=== PATIENT | female | born 1955 | race Caucasian/White ===

== ENCOUNTER 2025-03-21 15:43 | Inpatient (IN) | payer MEDICARE, MEDICAID ==
[~2025-03-21] VITALS: Ht 157.5 cm; Wt 55.4 kg
[2025-03-21 16:10] LABS: PLATELET COUNT (AUTO) 209 K/uL (150-450); RED BLOOD CELL COUNT(AUTO) 4.62 MIL/uL (4.00-5.20); RED CELL DISTRIBUTION WIDTH 13.5 % (11.5-14.5); WHITE BLOOD COUNT (AUTO) 8.8 K/uL (4.5-11.0)
[2025-03-21 16:18] LABS: CALCIUM, TOTAL 8.8 mg/dL (8.8-10.5); CREATININE 0.79 mg/dL (0.60-1.30); GLOMERULAR FILTR. RATE CALC > 60 mL/min (>60); GLUCOSE,RANDOM 98 mg/dL (70-110); SODIUM SERUM 146 mmol/L (136-145); UREA NITROGEN, BLOOD 17 mg/dL (7-18)
[2025-03-21 16:27] LABS: TROPONIN I-HIGH SENSITIVITY 9 ng/L (<51)
[2025-03-21 18:23] LABS: COVID AG,FIA SOURCE NASAL SWAB
[2025-03-21 18:53] LABS: SARS-COV2 (COVID) ANTIGEN,FIA Negative (Negative)
[2025-03-22 05:52] LABS: CHOL/HDL RATIO 2.8 (3.9-5.7); LDL CHOL (CALC.) 81 mg/dL (0-130)
[2025-03-22 06:13] LABS: VALPROIC ACID < 3 mcg/mL (50-100)
[2025-03-22 23:44] LABS: APPEARANCE,URINE HAZY (CLEAR); GLUCOSE, URINE (UA) NEGATIVE (NEGATIVE); LEUKOCYTE ESTERASE ,URINE NEGATIVE (NEGATIVE); NITRATE,URINE NEGATIVE (NEGATIVE); OCCULT BLOOD,URINE NEGATIVE (NEGATIVE); PH,URINE DRUG SCREEN 6.0 (5.0-8.0); SPECIFIC GRAVITIY, URINE 1.026 (1.003-1.030)
[2025-03-22 23:50] LABS: ALCOHOL, URINE DRUG SCREEN NEGATIVE (NEGATIVE); AMPHET/METH SCREEN,URINE NEGATIVE (NEGATIVE); BARBITURATE SCREEN, URINE NEGATIVE (NEGATIVE); CANNABINOID SCREEN,URINE NEGATIVE (NEGATIVE); COCAINE SCREEN,URINE NEGATIVE (NEGATIVE); METHADONE SCREEN, URINE NEGATIVE (NEGATIVE)
[2025-03-22 23:52] LABS: SQUAMOUS EPITHELIAL CELL,UR Rare /LPF (None Seen)
[2025-03-24 00:40] VITALS: BP 120/69; PULSE 58; RESP 16; TEMP 97.3; O2SAT 97
[2025-03-24] MEDS: CHOLECALCIFEROL (VIT D3) 5,000 [125 MCG] UNITS CAPSULE PO SCH (08:29)
[2025-03-24 12:40] VITALS: BP 135/70; PULSE 63; RESP 18; TEMP 97.8; O2SAT 95
[2025-03-24] MEDS: DONEPEZIL HCL 10 MG TABLET PO SCH (12:45)
[2025-03-24] MEDS: DIVALPROEX SODIUM 125 MG DR TABLET PO SCH (17:00)
[2025-03-24 20:12] VITALS: BP 127/77; PULSE 72; RESP 18; TEMP 97.4; O2SAT 98
[2025-03-24] MEDS: ATORVASTATIN CALCIUM 10 MG TABLET PO SCH (20:32)
[2025-03-24] MEDS: LORazepam 2 MG/ML VIAL IM ONE (21:54)
[2025-03-25 06:52] VITALS: BP 108/60; PULSE 56; RESP 18; TEMP 97.9; O2SAT 98
[2025-03-25 07:31] LABS: CHOL/HDL RATIO 3.2 (3.9-5.7); LDL CHOL (CALC.) 108.0 mg/dL (0-130)
[2025-03-25] MEDS: ESCITALOPRAM OXALATE 10 MG TABLET PO SCH (09:37)
[2025-03-25 21:21] VITALS: BP 113/64; PULSE 64; RESP 18; TEMP 98.3; O2SAT 97
[2025-03-26 09:40] VITALS: BP 147/76; PULSE 97; RESP 18; TEMP 98; O2SAT 97
[2025-03-26 20:00] VITALS: BP 110/90; PULSE 73; RESP 18; TEMP 98.1; O2SAT 98
[2025-03-27 08:00] VITALS: RESP 18
[2025-03-27] MEDS: LORazepam 2 MG/ML VIAL IM ONE (15:55)
[2025-03-27 20:11] VITALS: RESP 18
[2025-03-28 13:48] VITALS: RESP 18
[2025-03-28 20:06] VITALS: PULSE 77; RESP 18; O2SAT 100
[2025-03-29 08:25] VITALS: TEMP 98.6
[2025-03-29] MEDS ORDERED: LORazepam 2 MG/ML VIAL ONE (11:20)
[2025-03-29] MEDS: LORazepam 2 MG/ML VIAL IM ONE (11:29)
[2025-03-29 21:36] VITALS: RESP 17; TEMP 97.9
[2025-03-30 08:00] VITALS: BP 128/71; PULSE 73; RESP 17; TEMP 97.3
[2025-03-30 22:17] VITALS: RESP 18
[2025-03-31 10:45] VITALS: BP 115/71; PULSE 70; RESP 18; TEMP 98
[2025-03-31 21:40] VITALS: RESP 18
[2025-04-01] MEDS: ZOLPIDEM TARTRATE 5 MG TABLET PO PRN (01:49)
[2025-04-01 12:14] VITALS: BP 126/75; PULSE 75; RESP 19; TEMP 98.2; O2SAT 98
[2025-04-01 20:00] VITALS: BP 115/70; PULSE 80; RESP 18; TEMP 98; O2SAT 99
[2025-04-02 09:39] VITALS: BP 103/69; PULSE 78; RESP 17; TEMP 97.6; O2SAT 96
[2025-04-02 21:28] VITALS: BP 122/72; PULSE 62; RESP 18; TEMP 98.5; O2SAT 96
[2025-04-03 11:34] VITALS: TEMP 97.8
[2025-04-03 12:11] VITALS: RESP 20
[2025-04-03 21:50] VITALS: BP 118/68; PULSE 71; RESP 18; TEMP 97.3
[2025-04-04 08:56] VITALS: BP 118/78; PULSE 80; RESP 18; TEMP 97.8
[2025-04-04 21:24] VITALS: BP 112/70; PULSE 74; RESP 17; TEMP 97.3; O2SAT 97
[2025-04-05 09:24] VITALS: BP 102/67; PULSE 89; RESP 18; TEMP 97.9; O2SAT 98
[2025-04-05 21:38] VITALS: BP 93/61; PULSE 64; RESP 18; TEMP 97.8; O2SAT 95
[2025-04-06 08:01] VITALS: BP 127/90; PULSE 99; RESP 18; TEMP 97.7; O2SAT 98
[2025-04-06 21:23] VITALS: BP 135/86; PULSE 94; RESP 17; TEMP 97.5; O2SAT 99
[2025-04-07 08:09] VITALS: RESP 18
[2025-04-07 20:00] VITALS: BP 103/70; PULSE 70; RESP 18; TEMP 97.7; O2SAT 99
[2025-04-08 08:52] LABS: ASPARTATE AMINOTRANSFERASE 17 U/L (15-37); CALCIUM, TOTAL 8.8 mg/dL (8.8-10.5); CREATININE 0.77 mg/dL (0.60-1.30); GLOMERULAR FILTR. RATE CALC > 60 mL/min (>60); GLUCOSE,RANDOM 91 mg/dL (70-110); PHOSPHORUS 2.6 mg/dL (2.5-4.9); SODIUM SERUM 140 mmol/L (136-145); TOTAL PROTEIN, SERUM 6.8 g/dL (6.4-8.2); UREA NITROGEN, BLOOD 11 mg/dL (7-18)
[2025-04-08 11:08] VITALS: BP 129/62; PULSE 87; RESP 17; TEMP 99.3; O2SAT 96
[2025-04-08] MEDS ORDERED: DIVA125T32 PO (12:45)
[2025-04-08] MEDS ORDERED: ESCI-8 PO (12:45)
[2025-04-08] MEDS ORDERED: QUET25TA PO (12:46)
[2025-04-08] MEDS ORDERED: ATOR10TA PO (12:47)
[2025-04-08] MEDS ORDERED: CHOL500013 PO (12:49)
[2025-04-08] MEDS ORDERED: DONE-51 PO (12:49)
== END 2025-04-08 15:13 | disposition home or self-care (01) | DRG 885 ==
LOC: EMS 15:43 → 3EI 03-23 22:35
PROVIDERS: ADMIT Psychiatry & Neurology Child & Adolescent Psychiatry; ATTEND Psychiatry & Neurology Child & Adolescent Psychiatry
PROC: GZ56ZZZ Individual Psychotherapy, Supportive (ICD-10-PCS; principal; 2025-03-24)
PROC: GZ58ZZZ Individual Psychotherapy, Cognitive-Behavioral (ICD-10-PCS; 2025-03-24)
PROC: GZHZZZZ Group Psychotherapy (ICD-10-PCS; 2025-03-24)
DX: F25.0 Schizoaffective disorder, bipolar type (principal); F03.911 Unspecified dementia, unspecified severity, with agitation; F03.94 Unspecified dementia, unspecified severity, with anxiety; Z20.822 Contact with and (suspected) exposure to COVID-19; E78.00 Pure hypercholesterolemia, unspecified; Z79.899 Other long term (current) drug therapy; Z88.5 Allergy status to narcotic agent; Z91.148 Patient's other noncompliance with medication regimen for other reason; Z91.81 History of falling
CPT/HCPCS: 70450; 71045; 80048; 80053; 80061; 80164; 80307; 81001; 83036; 83735; 84100; 84439; 84443; 84484; 85025; 87081; 93005; 99285; G0480; J1200; J1630; J2060; 36415-L1; 36415-TC